=== PATIENT | female | born 1975 | race Caucasian/White ===

== ENCOUNTER 2017-04-03 10:26 | Emergency (ER) | payer BC ==
[2017-04-03 13:19] VITALS: BP 111/73
--- NOTE | 2017-04-03 13:34 | UC ---
Throat Pain/Nasal Tony HPI - HPI Summary HPI Summary: c/o cough x 1 week tried dayquil and nyquil with little relief. also c/o chills at night ,earache, nasal/chest congestion. - History of Current Complaint Chief Complaint: UCRespiratory Stated Complaint: CONGESTION Time Seen by Provider: 04/03/17 13:28 Hx Obtained From: Patient Hx Last Menstrual Period: 03/28/17 Onset/Duration: Lasting Days Severity: Moderate Pain Scale Used: 0-10 Numeric - 3/10 Cough: Nonproductive Associated Signs & Symptoms: Positive: Sinus Discomfort, Nasal Discharge - Epiglottits Risk Factors Epiglottis Risk Factors: Negative - Allergies/Home Medications Allergies/Adverse Reactions: Allergies Allergy/AdvReac Type Severity Reaction Status Date / Time No Known Allergies Allergy Verified 04/03/17 13:19 Home Medications: Home Medications Multiple Vitamins W/ Minerals [Hair Skin and Nails Formu] 1 tab PO DAILY [History Confirmed 04/03/17] Multiple Vitamins W/ Minerals [Multivitamin Adults] 1 tab PO DAILY 04/03/17 [ History Confirmed 04/03/17] PMH/Surg Hx/FS Hx/Imm Hx Previously Healthy: Yes - Surgical History Surgical History: None - Social History Alcohol Use: Weekly Substance Use Type: None Smoking Status (MU): Heavy Every Day Tobacco Smoker Type: Cigarettes Amount Used/How Often: 1/2 ppd Length of Time of Smoking/Using Tobacco: since age 21 Have You Smoked in the Last Year: Yes Review of Systems Constitutional: Chills Skin: Negative Eyes: Negative ENT: Sore Throat, Ear Ache, Nasal Discharge, Sinus Congestion, Sinus Pain/ Tenderness Respiratory: Cough Cardiovascular: Negative Gastrointestinal: Negative Genitourinary: Negative Musculoskeletal: Negative Neurological: Negative Psychological: Negative Is Patient Immunocompromised?: No All Other Systems Reviewed And Are Negative: Yes Physical Exam Triage Information Reviewed: Yes Appearance: No Pain Distress, Ill-Appearing Vital Signs: Initial Vital Signs Temp 97.6 F 04/03/17 13:15 Pulse 81 04/03/17 13:15 Resp 14 04/03/17 13:15 BP 111/73 04/03/17 13:15 Pulse Ox 100 04/03/17 13:15 Vital Signs Reviewed: Yes Eyes: Positive: Conjunctiva Clear ENT: Positive: Pharyngeal erythema, Nasal congestion, Nasal drainage, TM bulging , Hoarse voice, Sinus tenderness Neck: Positive: Supple Respiratory: Positive: Chest non-tender, Lungs clear, Normal breath sounds, No respiratory distress Cardiovascular Exam: Normal Abdominal Exam: Normal Psychological: Positive: Normal Response To Family, Age Appropriate Behavior Skin Exam: Normal Throat Pain/Nasal Course/Dx - Course Course Of Treatment: take antibiotic with food to reduce gi upset - discussed use and common side effects of med. increase fluids daily while on abx to prevent dehydration. take ibuprofen or tylenol as needed every 4-6 hours pain/ fever. f/u pcp in 1 week if symtoms not resolving - Differential Dx/Diagnosis Provider Diagnoses: bronchitis. sinusitis Discharge - Discharge Plan Condition: Stable Disposition: HOME Prescriptions: Amoxicillin PO (*) [Amoxicillin 875 MG (*)] 875 mg PO BID 10 Days #20 tab Patient Education Materials: Acute Bronchitis (ED)
== END 2017-04-03 13:46 | disposition home or self-care (01) ==
LOC: UCCORT 10:26
DX: J40 Bronchitis, not specified as acute or chronic (principal); J32.9 Chronic sinusitis, unspecified; F17.210 Nicotine dependence, cigarettes, uncomplicated
CPT/HCPCS: 99202; G0463

== ENCOUNTER 2017-04-26 12:58 | Emergency (ER) | payer BC ==
[2017-04-26 14:00] VITALS: BP 107/66
--- NOTE | 2017-04-26 14:24 | ED ---
Respiratory - HPI Summary HPI Summary: 41 yr old female with the complaint of coughing. Onset about three days ago with runny nose, scratchy throat, and coughing. Fever yesterday. She has myalgias as well. Denies dizziness. Denies SOB, CP. She states her currently has the flu. - History of Current Complaint Chief Complaint: UCGeneralIllness Stated Complaint: JIMMIE, COLD SYMPTOMS Time Seen by Provider: 04/26/17 14:01 - Allergy/Home Medications Allergies/Adverse Reactions: Allergies Allergy/AdvReac Type Severity Reaction Status Date / Time No Known Allergies Allergy Verified 04/26/17 14:00 PMH/Surg Hx/FS Hx/Imm Hx Infectious Disease History: No Infectious Disease History: Denies: Traveled Outside the [place] in Last 30 Days - Family History Known Family History: Positive: None - Social History Lives: With Family Alcohol Use: Occasionally Substance Use Type: Reports: None Smoking Status (MU): Heavy Every Day Tobacco Smoker Type: Cigarettes Amount Used/How Often: 1/2 ppd Length of Time of Smoking/Using Tobacco: since age 21 Have You Smoked in the Last Year: Yes Review of Systems Positive: Fever, Chills Positive: Cough Positive: Myalgia All Other Systems Reviewed And Are Negative: Yes Physical Exam Triage Information Reviewed: Yes Vital Signs On Initial Exam: Initial Vitals Temp Pulse Resp BP Pulse Ox 98.4 F 90 16 107/66 100 04/26/17 13:56 04/26/17 13:56 04/26/17 13:56 04/26/17 13:56 04/26/17 13:56 Vital Signs Reviewed: Yes Appearance: Positive: Well-Appearing, No Pain Distress Head/Face: Positive: Normal Head/Face Inspection Eyes: Positive: EOMI ENT: Positive: Pharynx normal, Nasal congestion, TMs normal Neck: Positive: Nontender Respiratory/Lung Sounds: Positive: Clear to Auscultation, Breath Sounds Present Cardiovascular: Positive: RRR. Negative: Murmur Abdomen Description: Positive: Nontender Musculoskeletal: Positive: Strength/ROM Intact Neurological: Positive: Sensory/Motor Intact, Alert, Oriented to Person Place, Time, CN Intact II-III, Normal Gait Psychiatric: Positive: Normal - [place] Coma Scale Best Eye Response: 4 - Spontaneous Best Motor Response: 6 - Obeys Commands Best Verbal Response: 5 - Oriented Diagnostics - Vital Signs Vital Signs Temp Pulse Resp BP Pulse Ox 04/26/17 13:56 98.4 F 90 16 107/66 100 - Laboratory Lab Results: Lab Results 04/26/17 Range/Units 14:06 Influenza A (Rapid) Negative (Negative) Influenza B (Rapid) Positive H (Negative) Lab Statement: Any lab studies that have been ordered have been reviewed, and results considered in the medical decision making process. Disposition - Course Course Of Treatment: 41 yr old with influenza positive. Plan DC home on tamiflu. Note for work - Diagnoses Provider Diagnoses: Influenza Discharge - Discharge Plan Condition: Good Disposition: HOME Prescriptions: Oseltamivir CAP* [Tamiflu CAP*] 75 mg PO BID #10 cap Patient Education Materials: Influenza (ED) Referrals: No Primary Care Phys,NOPCP [Primary Care Provider] -
== END 2017-04-26 14:30 | disposition home or self-care (01) ==
LOC: UCCORT 12:58
DX: J11.1 Influenza due to unidentified influenza virus with other respiratory manifestations (principal); Z72.0 Tobacco use
CPT/HCPCS: 87502; 99212; G0463

== ENCOUNTER 2018-01-02 12:04 | Emergency (ER) | payer BC ==
[2018-01-02 13:14] VITALS: BP 123/77
--- NOTE | 2018-01-02 14:05 | UC ---
Respiratory Complaint HPI - HPI Summary HPI Summary: 42-year-old woman arrives with a chief complaint of cough and chest congestion and wheezing for one week. Positive sputum production. The symptoms started more nasally and then down into her chest and now she feels short of breath. She is a smoker. No chest pain. - History of Current Complaint Chief Complaint: UCRespiratory Stated Complaint: HEAD/CHEST CONGESTION Time Seen by Provider: 01/02/18 13:05 Hx Last Menstrual Period: present Pain Intensity: 0 Pain Scale Used: 0-10 Numeric - Allergies/Home Medications Allergies/Adverse Reactions: Allergies Allergy/AdvReac Type Severity Reaction Status Date / Time No Known Allergies Allergy Verified 01/02/18 13:14 Home Medications: Home Medications Escitalopram Oxalate [Lexapro 10 mg] 10 mg PO DAILY 01/02/18 [History Confirmed 01/02/18] PMH/Surg Hx/FS Hx/Imm Hx Other Respiratory History: NO ASTHMA HISTORY Psychological History: Anxiety - Surgical History Surgical History: None - Family History Known Family History: Positive: None Family History: NO DM. NO CAD - Social History Alcohol Use: Occasionally Substance Use Type: None Smoking Status (MU): Heavy Every Day Tobacco Smoker Type: Cigarettes Amount Used/How Often: 1/2 ppd Length of Time of Smoking/Using Tobacco: since age 21 Have You Smoked in the Last Year: Yes Review of Systems Constitutional: Negative Skin: Negative Eyes: Negative ENT: Nasal Discharge, Sinus Congestion Respiratory: Shortness Of Breath, Cough, Other - WHEEZES Cardiovascular: Negative Gastrointestinal: Negative Motor: Negative Neurovascular: Negative Musculoskeletal: Negative Neurological: Negative Psychological: Negative Is Patient Immunocompromised?: No All Other Systems Reviewed And Are Negative: Yes Physical Exam Triage Information Reviewed: Yes Appearance: Well-Appearing, No Pain Distress, Well-Nourished Vital Signs: Initial Vital Signs Temp 97.5 F 01/02/18 13:08 Pulse 86 01/02/18 13:08 Resp 18 01/02/18 13:08 BP 123/77 01/02/18 13:08 Pulse Ox 97 01/02/18 13:08 Vital Signs Reviewed: Yes Eyes: Positive: Conjunctiva Clear ENT: Positive: Pharyngeal erythema, Nasal congestion, TMs normal Neck exam: Normal Neck: Positive: Supple Respiratory: Positive: Lungs clear, Normal breath sounds, No respiratory distress Cardiovascular: Positive: RRR Abdominal Exam: Normal Musculoskeletal Exam: Normal Neurological Exam: Normal Psychological Exam: Normal Skin Exam: Normal UC Diagnostic Evaluation - Laboratory O2 Sat by Pulse Oximetry: 97 Respiratory Course/Dx - Course Course Of Treatment: DISCUSSED VIRAL VERSES BACTERIAL INFECTION AND THE ROLE OF ANTIBIOTIC TREATMENT. THE PATIENT WISHES TO BE ON ANTIBIOTICS AT THIS TIME. - Differential Dx/Diagnosis Provider Diagnoses: BRONCHITIS. BRONCHOSPASM Discharge - Sign-Out/Discharge Documenting (check all that apply): Patient Departure All imaging exams completed and their final reports reviewed: No Studies - Discharge Plan Condition: Stable Disposition: HOME Prescriptions: Albuterol HFA INHALER* [Ventolin HFA Inhaler*] 2 puff INH Q4H PRN #1 mdi PRN Reason: Wheezing Azithromyxin FIORELLA (NF) [Z-Fiorella (Zithromax) 250 mg tabs #6] 2 tab PO .TODAY, THEN 1 DAILY #6 tab Patient Education Materials: Acute Bronchitis (ED), Bronchospasm (ED) Referrals: Jade Mcdonnell MD [Primary Care Provider] - Additional Instructions: FOLLOW UP WITH YOUR DOCTOR IF NOT COMPLETELY IMPROVED. GET RECHECKED FOR ANY WORSENING OF YOUR CONDITION OR QUESTIONS OR CONCERNS. - Billing Disposition and Condition Condition: STABLE Disposition: Home
== END 2018-01-02 13:20 | disposition home or self-care (01) ==
LOC: UCCORT 12:04
DX: J40 Bronchitis, not specified as acute or chronic (principal); J98.01 Acute bronchospasm; F17.210 Nicotine dependence, cigarettes, uncomplicated
CPT/HCPCS: 99212; G0463

== ENCOUNTER 2019-06-21 16:31 | Emergency (ER) | payer BC ==
[2019-06-21 17:42] VITALS: BP 122/88
--- NOTE | 2019-06-21 17:46 | UC ---
Elbow Pain - HPI Summary HPI Summary: Cough x 2-3 days, spots noticed by pt's mother on pt's face this morning. Pt c/ o to her mother last night that her mouth hurt. - History of Current Complaint Stated Complaint: S/P FALL, LEFT ELBOW INJURY Time Seen by Provider: 06/21/19 17:39 Hx Obtained From: Patient Hx Last Menstrual Period: 07/09/18 ?: No Onset/Duration: Hours - Allergies/Home Medications Allergies/Adverse Reactions: Allergies Allergy/AdvReac Type Severity Reaction Status Date / Time No Known Allergies Allergy Verified 06/21/19 17:42 Home Medications: Home Medications Ibuprofen 400 mg PO ONCE 06/21/19 [History Confirmed 06/21/19] PMH/Surg Hx/FS Hx/Imm Hx Previously Healthy: Yes - Surgical History Surgical History: Yes Surgery Procedure, Year, and Place: OVARIAN CYST REMOVED - Family History Known Family History: Positive: Cardiac Disease Family History: NO DM. NO CAD - Social History Occupation: Employed Full-time Alcohol Use: Occasionally Substance Use Type: None Smoking Status (MU): Heavy Every Day Tobacco Smoker Type: Cigarettes Amount Used/How Often: 1/2 ppd Length of Time of Smoking/Using Tobacco: since age 21 Have You Smoked in the Last Year: Yes Review of Systems All Other Systems Reviewed And Are Negative: Yes Skin: Positive: Bruising Musculoskeletal: Positive: Arthralgia, Decreased ROM, Edema Physical Exam Triage Information Reviewed: Yes Appearance: Well-Appearing, Well-Nourished, Pain Distress Vital Signs Reviewed: Yes Eye Exam: Normal ENT Exam: Normal Dental Exam: Normal Respiratory Exam: Normal Cardiovascular Exam: Normal Bowel Sounds: Positive: Present Musculoskeletal: Positive: Strength Limited @, ROM Limited @ - cannot fully extend, Edema @ - over noted around the joint Neurological Exam: Normal Psychological Exam: Normal Skin Exam: Normal Elbow Pain Course/Dx - Course Course Of Treatment: hx obtained, exam performed ,meds reviewed, xray appears to show a possible sompacted radial head fracture, treated as such, will await radiology read in the morning. - Differential Dx/Diagnosis Differential Diagnosis/HQI/PQRI: Contusion, Fracture (Closed) Provider Diagnosis: Left elbow fracture Discharge ED - Sign-Out/Discharge Documenting (check all that apply): Patient Departure All imaging exams completed and their final reports reviewed: No - Discharge Plan Condition: Stable Disposition: HOME Patient Education Materials: Elbow Fracture (ED) Referrals: Harvey Sandy MD [Medical Doctor] - Jade Mcdonnell MD [Primary Care Provider] - Additional Instructions: 1. use the compression wrap and the sling for reduction of swelling and comfort 2. Ibuprofen for pain and swelling 3. Radiologist read will be available in the morning. If it is anything other than positive fracture we will call you. 4. Follow up with Dr Sandy. - Billing Disposition and Condition Condition: STABLE Disposition: Home - Attestation Statements Provider Attestation: I was available for consult. This patient was seen by the WILFRIDO. The patient was not presented to, seen by, or examined by me. -Sadie
--- NOTE | 2019-06-22 07:53 | UC ---
- Progress Note Progress Note: Reviewed radiology reading. Per Dr. Arana, large joint effusion and probably non -displaced radial head fracture. No change from wet read. Has been splinted and has referral to Dr. Sandy. Course/Dx - Diagnoses Provider Diagnoses: Left elbow fracture Discharge ED - Sign-Out/Discharge Documenting (check all that apply): Post-Discharge Follow Up All imaging exams completed and their final reports reviewed: Yes - Discharge Plan Condition: Stable Disposition: HOME Patient Education Materials: Elbow Fracture (ED) Referrals: Harvey Sandy MD [Medical Doctor] - Jade Mcdonnell MD [Primary Care Provider] - Additional Instructions: 1. use the compression wrap and the sling for reduction of swelling and comfort 2. Ibuprofen for pain and swelling 3. Radiologist read will be available in the morning. If it is anything other than positive fracture we will call you. 4. Follow up with Dr Sandy. - Billing Disposition and Condition Condition: STABLE Disposition: Home
== END 2019-06-21 18:35 | disposition home or self-care (01) ==
LOC: UCCORT 16:31
DX: S42.402A Unspecified fracture of lower end of left humerus, initial encounter for closed fracture (principal); F17.210 Nicotine dependence, cigarettes, uncomplicated; R05 Cough; W19.XXXA Unspecified fall, initial encounter; Y92.9 Unspecified place or not applicable